=== PATIENT | male | born 1995 | race African-American/Black ===

== ENCOUNTER → 2016-06-07 | Outpatient (CLI) | payer BC ==
--- NOTE | 2016-06-07 16:46 | CT ---
EXAMINATION TYPE: CT abdomen pelvis w con DATE OF EXAM: 06/07/2016 4:28 PM COMPARISON: NONE HISTORY: 20-year-old male with bilateral lower quadrant pain with fever and nausea TECHNIQUE: Contiguous axial scanning of the abdomen and pelvis following administration of 100 ml Omn ipaque 300 IV contrast. Delayed images through the kidneys and coronal/sagittal reconstructions perf ormed. CT DLP: 374.8 mGycm Automated exposure control for dose reduction was used. FINDINGS: Heart is normal size without pericardial effusion. Lung bases clear without pleural effusion. No focal liver lesion or biliary ductal dilatation. Portal venous system is patent. Gallbladder, adrenal glands, kidneys, spleen, and pancreas appear within normal limits. There is a re troaortic left renal vein incidentally noted. While the appendix is not discretely visualized, no ga picious inflammatory change in the right lower quadrant to suggest acute appendicitis. Oral contrast has progressed to the hepatic flexure. No pericolonic inflammatory change. No mesenteric or retroperitoneal lymphadenopathy. Bladder is urine distended. No abnormal fluid collection in the pelvis or pelvic lymphadenopathy seen . Bones: There is bilateral superior acetabular retroversion and superior femoral head neck junction ca n deformities. No osseous destructive process. IMPRESSION: 1. NO ACUTE INFLAMMATORY PROCESS IDENTIFIED IN THE ABDOMEN OR PELVIS TO EXPLAIN THE PATIENT'S SYMPTOM S. 2. BONY CHANGES AT THE HIPS DESCRIBED ABOVE CAN BE SEEN WITH FEMORAL ACETABULAR IMPINGEMENT SYNDROME. RECOMMEND ORTHOPEDIC REFERRAL FOR PHYSICAL EXAM TESTING AND FURTHER EVALUATION.
== END | disposition home or self-care (01) ==
LOC: RADCTMAIN 14:37
PROVIDERS: ATTEND Family Medicine
DX: R10.9 Unspecified abdominal pain (principal)
CPT/HCPCS: 74177; Q9967

== ENCOUNTER 2019-03-26 15:36 | Emergency (ER) | payer BC, OTHER ==
[2019-03-26 16:02] VITALS: BP 118/77; PULSE 98; RESP 18; TEMP 98.2
--- NOTE | 2019-03-26 16:38 | XR ---
EXAMINATION TYPE: XR finger RT DATE OF EXAM: 03/26/2019 COMPARISON: NONE HISTORY: Crush injury to the third right digit TECHNIQUE: 3 views of the third right digit were obtained. FINDINGS: No acute fracture or dislocation is seen of the third right digit. No focal soft tissue swe lling radiographically. [place] is incidentally seen on the lateral view only at the volar surface of the proximal interphalangeal joint. No radiopaque foreign body. IMPRESSION: No acute fracture or dislocation of the right third digit.
--- NOTE | 2019-03-26 16:45 | ED ---
Upper Extremity HPI - General Chief Complaint: Extremity Injury, Upper Stated Complaint: Finger injury-[facility] Time Seen by Provider: 03/26/19 16:13 Source: patient Mode of arrival: ambulatory Limitations: no limitations - History of Present Illness Initial Comments: 23-year-old male presenting for right middle finger pain. Patient states he crushed his right middle finger at work. He states there is slight bruising and swelling of the digit. Patient denies any limitation to range of motion or strength. Patient denies any pain of the hand or wrist. Patient states his crushed between 2 objects. Patient denies any abrasions or lacerations. Patient denies any other complaints or areas of injury. Upon arrival patient appears well besides acute distress. - Related Data Allergies Allergy/AdvReac Type Severity Reaction Status Date / Time No Known Allergies Allergy Verified 03/26/19 16:02 Review of Systems ROS Statement: Those systems with pertinent positive or pertinent negative responses have been documented in the HPI. ROS Other: All systems not noted in ROS Statement are negative. Past Medical History Past Medical History: No Reported History History of Any Multi-Drug Resistant Organisms: None Reported Past Surgical History: No Surgical Hx Reported Past Psychological History: No Psychological Hx Reported Smoking Status: Never smoker Past Alcohol Use History: None Reported Past Drug Use History: None Reported General Exam - General Exam Comments Initial Comments: General: The patient is awake and alert, in no distress, and does not appear acutely ill. Eye: Pupils are equal, round and reactive to light, extra-ocular movements are intact. No nystagmus. There is normal conjunctiva bilaterally. No signs of icterus. Ears, nose, mouth and throat: There are moist mucous membranes and no oral lesions. Neck: The neck is supple, there is no tenderness or JVD. Cardiovascular: There is a regular rate and rhythm. No murmur, rub or gallop is appreciated. Respiratory: Lungs are clear to auscultation, respirations are non-labored, breath sounds are equal. No wheezes, stridor, rales, or rhonchi. Gastrointestinal: Soft, non-distended, non-tender abdomen without masses or organomegaly noted. There is no rebound or guarding present Musculoskeletal: Tender to palpation between the MCP and PIP joint of the middle finger of right hand. Otherwise nontender to palpation of the metacarpals, pulse no anatomical snuffbox tenderness. Normal ROM at the mCP, DIP and PIP joints of right hand. Strength 5/5 MCP PIP and DIP joints of all 5 digits of right hand. Sensation intact proximal and distal injury site.. Radial pulses equal bilaterally 2+. Neurological: A&O x 3. CN II-XII intact grossly, There are no obvious motor or sensory deficits. Coordination appears grossly intact. Speech is normal. Skin: Skin is warm and dry and no rashes or lesions are noted. Psychiatric: Cooperative, appropriate mood & affect, normal judgment. Limitations: no limitations Course Vital Signs 03/26/19 16:00 Temperature 98.2 F Pulse Rate 98 Respiratory 18 Rate Blood Pressure 118/77 O2 Sat by Pulse 97 Oximetry Medical Decision Making - Medical Decision Making 23-year-old male presenting to finger pain after crush injury. Some mild swelling and ecchymosis. No limitations of range of motion no limitations in strength and no abrasions or lacerations. XR (-) osseous injury. Placed in protective splint. Given work note. RICE instruction discussed. Patient discharged appearing well. Disposition Clinical Impression: Finger contusion Disposition: HOME SELF-CARE Condition: Good Instructions (If sedation given, give patient instructions): Contusion in Adults (ED) Additional Instructions: Please use medication as discussed. Please follow-up with family doctor in the next 2 days if symptoms are persistent.. Please return to emergency room if the symptoms increase or worsen or for any other concerns. Is patient prescribed a controlled substance at d/c from ED?: No Referrals: Josemanuel Lazcano Jr, DO [Primary Care Provider] - 1-2 days Time of Disposition: 16:45
== END 2019-03-26 17:20 | disposition home or self-care (01) ==
LOC: EC 15:36
DX: S60.031A Contusion of right middle finger without damage to nail, initial encounter (principal); W23.0XXA Caught, crushed, jammed, or pinched between moving objects, initial encounter; Y92.69 Other specified industrial and construction area as the place of occurrence of the external cause; Y99.0 Civilian activity done for income or pay
CPT/HCPCS: 99283